=== PATIENT | female | born 1990 | race Caucasian/White ===

== ENCOUNTER 2020-09-21 08:47 | Outpatient (CLI) | payer BC, OTHER, SELFPAY | END 2020-09-21 08:48 | disposition home or self-care (01) | LOC: ANHAUDIO 08:49 | PROVIDERS: PCP Nurse Practitioner Adult Health; Visit Provider Nurse Practitioner Family | DX: R42 Dizziness and giddiness (principal) | CPT/HCPCS: 92540; 92546; 92557; 92567 ==

== ENCOUNTER 2022-09-21 11:23 | Outpatient (CLI) | payer OTHER, SELFPAY ==
--- NOTE | ~2022-09-21 | US_ITS ---
EXAMINATION: US renal BI DATE: 09/21/2022 11:51 INDICATION: Low back and left flank pain TECHNIQUE: Multiple grayscale and Doppler ultrasound images of the kidneys were obtained. COMPARISON: None. FINDINGS: The right kidney measures 10.2 x 3.9 x 5.8 cm. The left kidney measures 11.0 x 4.9 x 5.0 cm . The kidneys demonstrate normal parenchymal echogenicity. There is mild hydronephrosis of the right kidney. The bladder is normal. IMPRESSION: 1. Mild hydronephrosis of the right kidney. Reviewed, dictated and finalized at location L.
== END 2022-09-21 11:24 ==
LOC: MICIMG 11:26
PROVIDERS: PCP Family Medicine; Visit Provider Nurse Practitioner Obstetrics & Gynecology
DX: M54.50 Low back pain, unspecified (principal)
CPT/HCPCS: 76775

== ENCOUNTER 2022-10-16 08:31 | Outpatient (CLI) | payer OTHER, SELFPAY ==
--- NOTE | ~2022-10-16 | CT_ITS ---
EXAMINATION: CT abdomen pelvis wo/w con DATE: 10/16/2022 09:28 INDICATION: Right-sided hydronephrosis TECHNIQUE: Computed tomography (CT) of the abdomen and pelvis was performed without intravenous contr ast. CT of the abdomen and pelvis was then performed with a total of 130 mL Omnipaque-350 intravenous contrast using a double-bolus technique for simultaneous opacification of the renal parenchyma and r enal collecting system. The dose-length product was 1103.04 mGy-cm. 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 Heart size is normal. No pericar dial or pleural effusion. Liver, gallbladder, spleen, pancreas and bilateral adrenal glands are jazlyn l. Symmetric bilateral renal enhancement an no urolithiasis. No hydronephrosis on the postcontrast image s. There is likely transient mild dilation of the right renal collecting system on the post contrast imaging but with excreted contrast extending to the normal caliber right ureter to the bladder where right ureteral jet is visualized. Contrast is also seen extending the near complete length of the nor mal left ureter. No obstructing stones or masses identified. The bladder is distended to 12.0 x 11.0 x 8.5 cm. No urothelial irregularities identified. The uterus is normal. There are couple small bilateral adnexal cysts, the larger on the left measurin g 1.5 cm . Bowels including the retrocecal appendix are normal. Minimal amount of likely physiologic free fluid in the cul-de-sac. Tiny fat-containing umbilical hernia. No pathologically enlarged abdomi nal or pelvic lymphadenopathy. Bilateral L5 pars intra-articular is defects without spondylolisthesis . IMPRESSION: 1. Resolution of prior left hydroureteronephrosis with likely transient mild right hydronephrosis see n on the postcontrast but not immediately prior noncontrast imaging. This may be related to the degre e of distention of the bladder with normal caliber right ureter, ureteral jet visualized within the b ladder and no evident urolithiasis or other obstructing lesions. Reviewed, dictated and finalized at location B. IMPRESSION: 1. Resolution of prior left hydroureteronephrosis with likely transient mild ri ght hydronephrosis seen on the postcontrast but not immediately prior noncontra st imaging. This may be related to the degree of distention of the bladder with normal caliber right ureter, ureteral jet visualized within the bladder and no evident urolithiasis or other obstructing lesions.
[2022-10-16 08:53] LABS: Estimated Glomerular Filt Rate > 60
== END 2022-10-16 08:32 ==
LOC: MICIMG 08:32
PROVIDERS: PCP Family Medicine; Visit Provider Urology
DX: N13.30 Unspecified hydronephrosis (principal)
CPT/HCPCS: 74178; Q9967

== ENCOUNTER 2022-12-08 12:59 | Outpatient (CLI) | payer OTHER, MEDICAID, SELFPAY | END 2022-12-08 13:00 | disposition home or self-care (01) | LOC: ANHLAB 13:07 | PROVIDERS: PCP Family Medicine; Visit Provider Advanced Practice Midwife | DX: O20.0 Threatened abortion (principal); N91.2 Amenorrhea, unspecified; O36.0130 Maternal care for anti-D [Rh] antibodies, third trimester, not applicable or unspecified; Z3A.00 Weeks of gestation of pregnancy not specified | CPT/HCPCS: 36415; 84702; 85461; 86850; 86900; 86901 ==

== ENCOUNTER 2022-12-09 11:07 | Emergency (ER) | payer OTHER, MEDICAID, SELFPAY ==
--- NOTE | ~2022-12-09 | US_ITS ---
US OB <=14 wk fetus w TV DATE: 12/09/2022 13:11 INDICATION: Pelvic cramping. Rule out ectopic gestation. TECHNIQUE: Real-time imaging via transabdominal and transvaginal approaches COMPARISON: 10/16/2022 CT abdomen pelvis FINDINGS: The uterus measures approximately 8.4 centers height, 4.3 cm AP dimension. An intrauterine gestational sac is identified within the uterine fundus. Yolk sac is identified within the gestationa l sac. Gestational sac size of 1.51 cm is consistent with estimated gestational age of 6 weeks 2 days +/- 4 days with MOHINI of August 02, 2023. Mild irregularity of the gestational sac. No definite feta l pole is not identified. Continued short-term sonographic follow-up is recommended to assess v iability. Consider correlation with serial serum beta hCG levels as well. The ovaries are not demonstrated. IMPRESSION: Intrauterine gestational sac with yolk sac; sac size consistent with 6 weeks 2 days estim ated gestational age but no pole is definitively demonstrated. Recommendation: Short-term obstetrical ultrasound follow-up within 1 week and correlation with serial hCG levels Reviewed, dictated and finalized at Location A. Reviewed, dictated and finalized at location A. IMPRESSION: Intrauterine gestational sac with yolk sac; sac size consistent wit h 6 weeks 2 days estimated gestational age but no pole is definitively de monstrated. Recommendation: Short-term obstetrical ultrasound follow-up within 1 week and c orrelation with serial hCG levels
[2022-12-09 11:31] VITALS: BP 114/67; PULSE 78; RESP 16; TEMP 36.9; O2SAT 100
[2022-12-09 12:56] LABS: Appearance Urine Clear (Clear); Bacteria Urine None Seen /hpf; Bilirubin Urine Negative (Negative); Blood Urine Trace (Negative); Color Urine Yellow (Yellow); Glucose Urine UA Negative (Negative); Ketones Urine Negative (Negative); Leukocyte Esterase Ur 1+ LEU/UL (Negative); Need Manual Microscopic Reviewed; Nitrate Urine Negative (Negative); Non Pathogenic Casts 0-2; Protein Urine Negative (Negative); RBC Urine 0-2 /hpf (0-2); Specific Grav Ur 1.005 (1.001-1.035); Squamous Epithelial Cell Urine None seen /hpf (Few); Urobilinogen Urine 0.2 mg/dL (<2.0); WBC Urine 0-5 /hpf; pH Urine 7.5 (5.0-9.0)
[2022-12-09 12:58] LABS: Add Urine Microscopic? YES
[2022-12-09 13:01] LABS: Basophils Percent Auto 0.5 % (0.2-1.2); Eosinophils Absolute Auto 0.1 K/mm3 (0-0.3); Hematocrit 40.7 % (37.0-47.0); Hemoglobin 13.4 g/dL (12.0-15.0); Immature Granulocyte Absolute 0.01 K/mm3 (0.00-0.031); Immature Granulocyte Percent A 0.2 % (0-0.5); Lymphocytes Percent Auto 24.1 % (18.3-44.2); Mean Corpuscular HGB Conc 32.9 g/dl (32-36); Mean Corpuscular Hemoglobin 28.6 pg (26-34); Mean Corpuscular Volume 86.8 fl (80-100); Mean Platelet Volume 10.1 fl (7.4-10.4); Monocytes Absolute Auto 0.7 K/mm3 (0.1-0.6); Monocytes Percent Auto 10.2 % (2.6-8.5); Neutrophils Absolute Auto 4.2 K/mm3 (1.3-6.7); Platelet Count Result 213 k/mm3 (150-375); Red Blood Count 4.69 M/mm3 (4.2-5.4); Red Cell Distribution Width 12.7 % (11.5-14.5); White Blood Count 6.6 K/mm3 (4.5-10.0)
--- NOTE | 2022-12-09 13:04 | ED.GENADULT ---
HPI - General Adult General Chief complaint: Abdominal Pain Stated complaint: abdominal cramping, Time Seen by Provider: 12/09/22 12:02 History of Present Illness HPI narrative: This is a 32-year-old presenting ED after a positive test and vaginal spotting. Over the last 2-3 days the patient has been having the spotting and lower abdominal cramping. She had a positive test yesterday. She did see her OBGYN and had a beta quant drawn of 22,000. she tried to get in to see her OBGYN in instructed her to come to the emergency department. No other complaints. She has an ultrasound scheduled next week. Last menstrual period was September 29. Patient did not havea mentstrual period in october but took a test at that time that was negative. Related Data Allergies Allergy/AdvReac Type Severity Reaction Status Date / Time No Known Allergies Allergy Verified 12/09/22 11:08 Exam Narrative: APPEARANCE: No apparent distress. Head: atraumatic. EYES: EOMI, NOSE: Atraumatic NECK: Trachea midline RESPIRATORY: No increased rate of breathing clear to auscultation CARDIOVASCULAR: RRR, ABDOMINAL: Abdomen is soft nontender with no guarding rebound MUSCULOSKELETAl: No obvious deformities NEURO: Alert. Moving 4/4 extremities SKIN:: Warm, dry. Normal color PSYCHIATRIC: Normal affect Course Vital Signs Vital signs: Vital Signs Temperature 98.4 F 12/09/22 11:31 Pulse Rate 78 12/09/22 11:31 Respiratory Rate 16 12/09/22 11:31 Blood Pressure 114/67 12/09/22 11:31 Pulse Oximetry 100 12/09/22 11:31 Oxygen Delivery Room Air 12/09/22 11:31 Temperature 98.4 F 12/09/22 11:31 Pulse Rate 78 12/09/22 11:31 Respiratory Rate 16 12/09/22 11:31 Blood Pressure 114/67 12/09/22 11:31 Pulse Oximetry 100 12/09/22 11:31 Oxygen Delivery Room Air 12/09/22 11:31 Medical Decision Making MDM Narrative Medical decision making narrative: -Presentation: 32-year-old female presenting with abdominal pain cramping and spotting in . Rule out ectopic/miscarriage. 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 Transvaginal ultrasound showed a yolk sac without a definitive pole. Recommend close follow-up with ultrasound. Patient already has this scheduled. blood type is A positive. -Discussion of Management/Consultants: None -Dx tests considered but not ordered: -Procedures: none -Interventions: None -Shared decision making / Disposition: patient was informed of the results instructed follow-up with her OBGYN. Given return precautions for severe bleeding. -RX Vital Signs Vital Signs: Vital Signs Temperature 98.4 F 12/09/22 11:31 Pulse Rate 78 12/09/22 11:31 Respiratory Rate 16 12/09/22 11:31 Blood Pressure 114/67 12/09/22 11:31 Pulse Oximetry 100 12/09/22 11:31 Oxygen Delivery Room Air 12/09/22 11:31 Temperature 98.4 F 12/09/22 11:31 Pulse Rate 78 12/09/22 11:31 Respiratory Rate 16 12/09/22 11:31 Blood Pressure 114/67 12/09/22 11:31 Pulse Oximetry 100 12/09/22 11:31 Oxygen Delivery Room Air 12/09/22 11:31 Lab Data 12/09/22 12:47 12/09/22 12:47 Labs: Lab Results 12/09/22 12/09/22 Range/Units 12:22 12:47 WBC 6.6 (4.5-10.0) K/mm3 RBC 4.69 (4.2-5.4) M/mm3 Hgb 13.4 (12.0-15.0) g/dL Hct 40.7 (37.0-47.0) % MCV 86.8 (80-100) fl MCH 28.6 (26-34) pg MCHC 32.9 (32-36) g/dl RDW 12.7 (11.5-14.5) % Plt Count 213 (150-375) k/mm3 MPV 10.1 (7.4-10.4) fl Immature Gran % (Au
[2022-12-09 13:14] LABS: Anion Gap 7 mmol/L (8-16); Blood Urea Nitrogen 10 mg/dL (7-17); Calcium 9.2 mg/dL (8.4-10.2); Carbon Dioxide 26 mmol/L (22-30); Chloride 103 mmol/L (98-107); Estimated CRCL calculation 88 ml/min; Estimated Glomerular Filt Rate > 60; Glucose 85 mg/dL (65-110); Potassium 4.2 mmol/L (3.4-5.0); Sodium 136 mmol/L (137-145)
== END 2022-12-09 15:05 | disposition home or self-care (01) ==
PROVIDERS: Emergency Provider Emergency Medicine; PCP Family Medicine
DX: O20.0 Threatened abortion (principal); Z3A.01 Less than 8 weeks gestation of pregnancy
CPT/HCPCS: 36415; 76801; 76817; 80048; 81001; 81025; 85025; 99284

== ENCOUNTER 2023-05-08 09:00 | Outpatient (RCR) | payer OTHER, SELFPAY ==
--- NOTE | 2023-04-16 15:41 | OPREHPOC ---
Outpatient Therapy Plan of Care This is a Multidisciplinary Plan of Care that may contain components documented by all disciplines (PT, OT, and ST.) PT Problem 1 PT Problem #1 Knowledge Deficit PT Goal 1 Goal Pt to be IND with issued HEP Target Visit 8 PT Problem 2 PT Problem #2 Pain PT Goal 1 Goal Pt to report leg pain no greater than 3/10 in the last week. Target Visit 8 PT Goal 2 Goal pt to report 75% improvement in overall symptoms. Target Visit 8 PT Problem 3 PT Problem #3 Impaired Strength PT Goal 1 Goal Pt to improve hip strength to 4+/5 globally. Target Visit 8 PT Goal 2 Goal Pt to demonstrate a 10lb functional lift and carry without limitations. Target Visit 8 PT Problem 4 PT Problem #4 Impaired Sensation PT Goal 1 Goal Pt to report no radicular symptoms in the last week. Target Visit 8 PT Goal 2 Goal Pt to report no increase in pain with 4 hours of standing. Target Visit 8
--- NOTE | 2023-04-16 15:41 | PTOPEVAL1 ---
Assessment and note entered by Jhonny Covington, PT, DPT Evaluation Information Assessment Status Evaluation Diagnosis L leg tingling, core and hip weakness, decreased body mechanics Subjective Information When asked about her pain, pt states she is not a fan of physical therapy but her chiropractor helps a lot. She states she thinks this is sciatic pain. She states her pain increases when she is on her feet for long periods of time. She is currently wearing a knee brace cause it feels like her knee is going to give out on her. Pt is 24wks as of yesterday. 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 Today she demonstrates a positive neutral tension test, decreased hip and core strength, and decreased body mechanics. She demonstrates decreased stability globally. Skilled therapy services are indicated to improve strength, manage pain, improve body mechanics, and to minimize functional limitations. Plan of Care Interventions Gait Training,Hot Pack/Cold Pack,Manual Therapy, Neuro Re-education,Patient/Caregiver Educati, Therapeutic Activities,Therapeutic Exercise PT Services Indicated Yes Treatment Frequency and 1-2x/wk for 8 visits Duration These treatments will address the objective and functional deficits as defined above. The patient will be advanced safely and appropriately in order for the patient to progress towards his/her prior level of function. Additional exercises will be introduced and as well as a comprehensive home exercise program upon discharge, if needed, ?to ensure carryover of functional gains achieved in the clinic. This treatment plan has been reviewed and agreement upon by the patient.
--- NOTE | 2023-04-24 15:38 | PCPTNOTE ---
Patient canceled due to work.
--- NOTE | 2023-04-26 09:20 | PCPTNOTE ---
Patient no showed to appointment this date. Called and patient stated she didn't know she had an appointment.
--- NOTE | 2023-04-30 09:20 | PCPTNOTE ---
Patient did not show up for scheduled appointment this date. Called and reminded of next appointment.
--- NOTE | 2023-05-07 09:06 | PCPTNOTE ---
Patient called & cancelled at her appointment time this date due to not being able to make it. She has been rescheduled.
--- NOTE | 2023-05-14 09:17 | PCPTNOTE ---
Patient called & cancelled scheduled appointment this date due to being ill. She has been rescheduled.
--- NOTE | 2023-05-24 09:29 | PTOPDC ---
Assessment and note entered by Jhonny Covington, PT, DPT Evaluation Information Assessment Status Discharge - Pt Not Present Diagnosis pain (R52) LLE radic., core and hip weakness, decreased body mechanics Subjective Information Pt called and cancelled appointment at the time of the appointment. She will be discharged at this time per the attendance policy. Within her POC she has cancelled 4 and no showed 2 appointments. Assessment PT Clinical Summary Reuben completed 4 visits of therapy from 04/16/23 to 05/24/23. She will be discharged at this time.
== END 2023-05-24 10:22 | disposition home or self-care (01) ==
LOC: ANHGOSHPT 09:00
PROVIDERS: PCP Family Medicine; Visit Provider Advanced Practice Midwife
DX: R52 Pain, unspecified (principal)
CPT/HCPCS: 97110; 97161; 97530; 99199

== ENCOUNTER 2023-05-22 09:47 | Outpatient (RCR) | payer OTHER, SELFPAY ==
[2023-05-22 10:45] VITALS: BP 105/68; PULSE 124
== END 2023-08-20 23:59 | disposition home or self-care (01) ==
LOC: ANHOBOP 09:47
PROVIDERS: PCP Family Medicine; Visit Provider Advanced Practice Midwife
DX: O36.8130 Decreased fetal movements, third trimester, not applicable or unspecified (principal); Z3A.29 29 weeks gestation of pregnancy
CPT/HCPCS: 59025

== ENCOUNTER 2023-07-24 06:11 | Inpatient (IN) | payer OTHER, SELFPAY ==
[2023-07-24] VITALS (70 sets, daily range): BP systolic 91–158; BP diastolic 55–93; PULSE 62–145; RESP 16–18; TEMP 36.7–37.1; O2SAT 82–100; BMI 35.4
[2023-07-24] MEDS: fentaNYL CITRATE INJ (*CRX) 100 MCG/2 ML VIAL 50 MCG IV PUSH (06:47)
[2023-07-24 06:49] LABS: Basophils Percent Auto 0.2 % (0.2-1.2); Eosinophils Absolute Auto 0.2 K/mm3 (0-0.3); Eosinophils Percent Auto 2.3 % (0-4.4); Hematocrit 36.6 % (37.0-47.0); Hemoglobin 11.9 g/dL (12.0-15.0); Immature Granulocyte Absolute 0.01 K/mm3 (0.00-0.031); Immature Granulocyte Percent A 0.1 % (0-0.5); Lymphocytes Absolute Auto 1.98 K/mm3 (0.9-3.2); Mean Corpuscular HGB Conc 32.5 g/dl (32-36); Mean Corpuscular Volume 86.1 fl (80-100); Mean Platelet Volume 11.1 fl (7.4-10.4); Monocytes Absolute Auto 0.6 K/mm3 (0.1-0.6); Monocytes Percent Auto 7.6 % (2.6-8.5); Neutrophils Absolute Auto 5.4 K/mm3 (1.3-6.7); Neutrophils Percent Auto 65.8 % (45.5-73.1); Platelet Count Result 151 k/mm3 (150-375); Red Blood Count 4.25 M/mm3 (4.2-5.4); Red Cell Distribution Width 14.3 % (11.5-14.5); White Blood Count 8.3 K/mm3 (4.5-10.0)
--- NOTE | 2023-07-24 06:52 | LDADM ---
This patient, Reuben Cope, was admitted to Labor/Delivery/Recovery 104 on 07/24/23 at 06:11. Plans for labor, pain management and were discussed with patient. Patient/family oriented to hospital policies and general routines including ID bracelet, bed and alarms, visiting hours, pain management, procedures, bathroom and other care routines, personal items, smoking policy, room service/diet and guest tray routines, infant security routines, and visiting hours. Patient/Family are encouraged to report perceived risks to care and to ask questions if they do not understand what they are told or what they should do. See OBIX for further documentation.
[2023-07-24 06:59] LABS: Alanine Aminotransferase 25 U/L (6-35); Albumin Level 3.7 g/dL (3.5-5.1); Alkaline Phosphatase 169 U/L (38-126); Anion Gap 5 mmol/L (8-16); Aspartate Amino Transferase 29 U/L (14-36); Bilirubin,Total 0.5 mg/dL (0.2-1.3); Blood Urea Nitrogen 9 mg/dL (7-17); Calcium 9.8 mg/dL (8.4-10.2); Carbon Dioxide 23 mmol/L (22-30); Chloride 107 mmol/L (98-107); Estimated CRCL calculation 99 ml/min; Estimated Glomerular Filt Rate > 60; Glucose 89 mg/dL (65-110); Potassium 4.1 mmol/L (3.4-5.0); Sodium 135 mmol/L (137-145)
[2023-07-24] MEDS: LACTATED RINGERS 1,000 ML 125 ML IV CONT ×2 (07:03→07:51)
[2023-07-24 07:05] LABS: Uric Acid 4.2 mg/dL (2.5-7.5)
[2023-07-24] MEDS: ONDANSETRON INJ 4 MG/2 ML VIAL IV PUSH (07:05)
--- NOTE | 2023-07-24 09:28 | WPDANESEPP ---
Anes - Eval Pre Procedure Procedure: labor pain management Date/Time: 07/24/23 09:28 Surgeon: Ebonie Preop Diagnosis: pain during labor Pre Op Diagnosis: Labor Patient Data Age: 33 Gender: F Height: 1.55 m Weight: 85 kg Last Vital Signs Temp 98.1 F 07/24/23 08:55 Pulse 99 07/24/23 09:16 Resp 18 07/24/23 08:55 BP 107/77 07/24/23 09:16 Pulse Ox 100 07/24/23 09:23 O2 Del Method Room Air 07/24/23 06:50 Allergies Allergy/AdvReac Type Severity Reaction Status Date / Time latex Allergy Itching Verified 07/06/23 14:53 Home Medications Medication Instructions Recorded Confirmed Type Classic 1 tab-cap PO DAILY 07/06/23 07/06/23 History Laboratory Tests 07/24/23 06:36 WBC 8.3 K/mm3 (4.5-10.0) RBC 4.25 M/mm3 (4.2-5.4) Hgb 11.9 L g/dL (12.0-15.0) Hct 36.6 L % (37.0-47.0) MCV 86.1 fl (80-100) MCH 28.0 pg (26-34) MCHC 32.5 g/dl (32-36) RDW 14.3 % (11.5-14.5) Plt Count 151 k/mm3 (150-375) MPV 11.1 H fl (7.4-10.4) Immature Gran % (Auto) 0.1 % (0-0.5) Neut % (Auto) 65.8 % (45.5-73.1) Lymph % (Auto) 24.0 % (18.3-44.2) [place] % (Auto) 7.6 % (2.6-8.5) Eos % (Auto) 2.3 % (0-4.4) Baso % (Auto) 0.2 % (0.2-1.2) Lymph # (Auto) 1.98 K/mm3 (0.9-3.2) [place] # (Auto) 0.6 K/mm3 (0.1-0.6) Eos # (Auto) 0.2 K/mm3 (0-0.3) Baso # (Auto) 0.0 K/mm3 (0.0-0.1) Abs Immat Gran (auto) 0.01 K/mm3 (0.00-0.031) Absolute Neuts (auto) 5.4 K/mm3 (1.3-6.7) Absolute Nucleated RBC 0.0 K/mm3 (0.0-0.012) Nucleated RBC % 0.0 % (0.0-0.2) Sodium 135 L mmol/L (137-145) Potassium 4.1 mmol/L (3.4-5.0) Chloride 107 mmol/L (98-107) Carbon Dioxide 23 mmol/L (22-30) Anion Gap 5 L mmol/L (8-16) BUN 9 mg/dL (7-17) Creatinine 0.70 mg/dL (0.7-1.0) Estim Creat Clear Calc 99 ml/min Estimated GFR > 60 (59 - ) Glucose 89 mg/dL (65-110) Uric Acid 4.2 mg/dL (2.5-7.5) Calcium 9.8 mg/dL (8.4-10.2) Total Bilirubin 0.5 mg/dL (0.2-1.3) AST 29 U/L (14-36) ALT 25 U/L (6-35) Alkaline Phosphatase 169 H U/L (38-126) Total Protein 7.0 g/dL (6.3-8.2) Albumin 3.7 g/dL (3.5-5.1) RPR Pending Blood Type A Positive Antibody Screen Negative Patient hx anesthesia problems: none Family hx anesthesia problems: none Results Review: All pre-operative results and documents have been reviewed as part of the pre-operative evaluation. PENDING SALE TO [facility] Family History Family History Father Congestive heart failure Social History Social History Smoking status: Never smoker Substance use: never Do You Feel Safe in your Home?: Yes Lack of Transportation: No Lack of Food: Never True Current Housing: I Have Housing Concerned About Future Housing: No Difficulty Paying Gas/Electric Bills: No Difficulty Paying for Meds: No Currently Unemployed: No Education: Associate Degree Difficulty w/ Childcare or Family Care: No Spiritual care concerns: No Exam Day of Procedure 07/24/23 09:28
--- NOTE | 2023-07-24 09:51 | WPDOBADMIT ---
Obstetrics - Admit Note Admission Note: record reviewed. No pertinent additions to the history and/or any subsequent changes in the physical findings that are not consistent with the expected course of the were found. Additions to the history and/or subsequent changes in the physical findings follow. admitted after SROM, anticipate vaginal delivery
[2023-07-24] MEDS: OXYTOCIN 30 UNITS/NS 500 ML 30 UNITS/500 ML BAG IV CONT (10:30)
--- NOTE | 2023-07-24 11:14 | PM.OBPRVD ---
OB - Vaginal Delivery Note Procedure Delivery date: 07/24/23 Delivery augmentation: Pitocin Delivery monitor: External FHT and External Uterine Route of delivery: Episiotomy description: None Laceration Description: Perineal - 1st Degree and Labial (left) Delivery repair: vicryl Specimen: No Quantitative Blood Loss (ml): 325 Anesthesia type: Epidural Disposition: Floor Complications: No immediate complications Baby Date of : 07/24/23 Time of : 10:55 Weeks of gestation at delivery: 38 Infant gender: Female Weight (pounds): 7 Weight (ounces): 11 presentation: vertex position: Left Occiput Anterior Placenta delivery description: Spontaneous Cord Vessel Description: 3 Vessels and Delayed Cord Clamping score one minute: 8 score five minutes: 9 Narrative: mother and baby in stable condition
[2023-07-24] MEDS: IBUPROFEN 600 MG TABLET PO ×2 (11:23→13:29)
[2023-07-24] MEDS: OXYTOCIN 30 UNITS/NS 500 ML 30 UNITS/500 ML BAG 125 UNITS IV CONT (11:35)
--- NOTE | 2023-07-24 13:34 | OBPPTRN ---
Patient transferred to post room #285 via wheelchair. Support person present. Oriented to unit, room, information board, rooming in, admission packet and security measures. Patient verbalizes understanding.
[2023-07-24] MEDS: DOCUSATE SODIUM 100 MG CAPSULE PO (16:09)
[2023-07-24 17:04] LABS: Rapid Plasma Reagin Non-Reactive (NonReactive)
[2023-07-24] MEDS: SIMETHICONE 80 MG TAB.CHEW PO (20:20)
[2023-07-24] MEDS: ACETAMINOPHEN 325 MG TABLET 650 MG PO (22:35)
[2023-07-25] MEDS: IBUPROFEN 600 MG TABLET PO ×2 (02:32→13:43)
[2023-07-25 03:30] VITALS: BP 117/72; PULSE 91; RESP 16; TEMP 36.8; O2SAT 99
[2023-07-25 04:55] LABS: Hematocrit 31.5 % (37.0-47.0); Hemoglobin 9.9 g/dL (12.0-15.0)
[2023-07-25] MEDS: ACETAMINOPHEN 325 MG TABLET 650 MG PO ×2 (07:19→21:37)
[2023-07-25] MEDS: DOCUSATE SODIUM 100 MG CAPSULE PO ×2 (07:20→16:00)
[2023-07-25] MEDS: POLYSACCHARIDE IRON COMPLEX 150 MG CAPSULE PO ×2 (07:20→16:00)
[2023-07-25] MEDS: WITCH HAZEL 40 PADS 1 PAD TOPICAL (07:20)
[2023-07-25] MEDS: MULTIVIT/MIN/PREN/FOL AC/IRON TABLET 1 TAB PO (07:20)
--- NOTE | 2023-07-25 07:48 | PM.OBPNVD ---
OB - PN: Subj Subjective Date/time seen: 07/25/23 07:48 Interval history: pp day 1 doing well no complaints OB - PN: Obj Data Labs 07/25/23 03:25 07/24/23 06:36 Labs: Laboratory Results - last 24 hr 07/24/23 07/25/23 06:36 03:25 Hgb 9.9 L Hct 31.5 L RPR Non-reactive OB - PN A/P Plan day: 1 Plan: routine care and discharge home Time Spent With Patient Time: Total time spent is greater than 50% in coordination of care (as documented) at patient's floor/unit and/or counseling patient: Review of Systems Review of Systems: All systems reviewed & are unremarkable except as noted in HPI and below Exam Const: General: cooperative and healthy appearing Resp: Effort & Inspection: normal respiratory effort Cardio: Rate: regular rate Skin: General skin exam: normal color
[2023-07-25 07:55] VITALS: BP 105/74; PULSE 75; TEMP 36.6; O2SAT 100
[2023-07-25] MEDS: CALCIUM CARBONATE (TUMS) 500 MG (200 MG ELEMENTAL) (08:43)
--- NOTE | 2023-07-25 09:49 | PC.NURSE ---
On 07/25/23, the student, Familia Mcarthur, provided care and completed [facility] documentation on this patient. I have reviewed the student's documentation and agree with the findings.
--- NOTE | 2023-07-25 17:25 | PC.NURSE ---
[id number] Introductions were made, then consulted with patient to assess needs related to . Mother has company and gave verbal consent to have a discussion while guest are present. Discussed with mother her?plans to feed?her , the?experience so far and shared that there were poor latches last night and her right nipple is sore today. Mother states that the last feeding was 30 minutes on the left breast and there was no pain. Resources provided for inpatient with name written on the communication board. Mother voiced understanding of information, will call if there is a request for assistance, and we will revisit tomorrow to assess if there are needs. taken to the nursery for a Pediatric assessment. Reported to the Primary RN.
[2023-07-25 20:00] VITALS: BP 111/73; PULSE 71; RESP 18; TEMP 36.8; O2SAT 100
[2023-07-26] MEDS: IBUPROFEN 600 MG TABLET PO ×2 (02:19→12:20)
[2023-07-26] MEDS: CALCIUM CARBONATE (TUMS) 500 MG (200 MG ELEMENTAL) (03:00)
[2023-07-26 07:58] VITALS: TEMP 36.7
[2023-07-26] MEDS: ACETAMINOPHEN 325 MG TABLET 650 MG PO (07:58)
--- NOTE | 2023-07-26 07:58 | PM.OBPNVD ---
OB - PN: Subj Subjective Date/time seen: 07/26/23 07:58 Interval history: pp day 1 doing well no complaints Patient comments: no complaints, pain well controlled and tolerating diet OB - PN: Obj Data Labs 07/25/23 03:25 07/24/23 06:36 OB - PN A/P Plan day: 2 Plan: routine care and discharge home Time Spent With Patient Time: Total time spent is greater than 50% in coordination of care (as documented) at patient's floor/unit and/or counseling patient: Exam Const: General: comfortable and no acute distress Resp: Effort & Inspection: normal respiratory effort Auscultation: no rales, no rhonchi and no wheezes Cardio: Rate: regular rate Heart sounds: no click, no murmurs and no rubs GI: GI Palp: Yes Soft to palpation and No Tenderness to palpation present (GI) Auscultation: normal bowel sounds Extrem: General: normal to inspection, no pedal edema and no calf tenderness
--- NOTE | 2023-07-26 07:58 | PM.OBDSVD ---
DS: Admitting Diagnosis Discharge Date 07/26/23 Admitting Diagnosis term OB - DS: Summary OB Procedures : None OB Procedures Intrapartum: Spontaneous Vag Delivery OB Procedures: : None Peripartum Data Laceration Description: Perineal - 1st Degree and Labial (left) Episiotomy description: None Time Spent with Patient Time attestation: Total time spent providing and/or coordinating discharge services: Discharge Plan Discharge Discharging Clinician: Ana Loomis Patient Disposition: Home, Self-Care Activity: pelvic rest Diet: regular Patient Instructions: Antibiotic Form Stand Alone Forms: General Discharge Information Follow-up/Referrals: Ana Loomis MD [Physician] - Discharge Medications: Continued Classic 1 tab-cap PO DAILY Date of admission: 07/24/23 06:11 Primary Care Provider: Moo,Edgar Payne Admitting Provider: Ana Loomis Attending physician on admission: Ana Loomis Condition: Stable
[2023-07-26] MEDS: MULTIVIT/MIN/PREN/FOL AC/IRON TABLET 1 TAB PO (07:59)
[2023-07-26] MEDS: DOCUSATE SODIUM 100 MG CAPSULE PO (07:59)
[2023-07-26] MEDS: POLYSACCHARIDE IRON COMPLEX 150 MG CAPSULE PO (07:59)
[2023-07-26 08:00] VITALS: BP 111/76; PULSE 62; RESP 18; TEMP 36.7; O2SAT 100
--- NOTE | 2023-07-26 15:27 | PC.NURSE ---
[id number] Mother led the conversation with her experience so far, plan to feed her , and her ability to independently latch optimally without discomfort and demonstrates effective on the right breast at this time. Reminded mother to use good handwashing technique to prevent infection. Mother is feeding appropriately for growth of and understands stimulating infant to eat if needed. Infant has had appropriate feedings in the last 24 hours meets the outcomes for weight, output, blood sugar and jaundice at this time. Mother states she is confident to continue effectively her at home, when to call for assistance, denies any additional assistance or education at this time. Reinforced understanding of milk production, transition of milk, signs of adequate intake, transition of stool, prevention/relief of engorgement, plugged ducts, mastitis, responsive watching for feeding cues, the different methods of stimulating to breastfeed 1-3 hours after the start of the last feeding, community resources, and when to call a provider using the resource of the mom and baby guide. Mother voiced understanding of the education shared.
[2023-07-27 10:38] VITALS: BP 123/81; PULSE 74; RESP 18; TEMP 37.1; O2SAT 100
== END 2023-07-26 15:13 | disposition home or self-care (01) | DRG 560 ==
LOC: ANHLDR 06:31 → ANHOB2 13:35
PROVIDERS: Admitting Provider Obstetrics & Gynecology; PCP Family Medicine; Referring Provider Advanced Practice Midwife; Visit Provider Obstetrics & Gynecology
DX: O70.0 First degree perineal laceration during delivery (principal); Z37.0 Single live birth; Z3A.38 38 weeks gestation of pregnancy
CPT/HCPCS: 36415; 80053; 84550; 85014; 85018; 85025; 86592; 86850; 86900; 86901; A9270; J2405; J2590; J2795; J3010; J7120

== ENCOUNTER 2024-02-28 13:56 | Emergency (ER) | payer OTHER, SELFPAY ==
--- NOTE | ~2024-02-28 | US_ITS ---
US OB transvaginal Ordering provider: Rod Patel History: . vaginal bleeding . Comparison: None. Technique: Transabdominal and endovaginal ultrasound of the pelvis (Doppler ultrasound interrogation techniques used as needed for this exam.) FINDINGS: CERVIX: Normal. UTERUS: Measures 8.7x 3.8x 6.1 cm.. No myometrial masses. Gestational sac is seen measuring 0.7 cm which is equivalent to 5 weeks and 3 days. Yolk sac and pole are not demonstrated. Tiny area seen in the gestational sac may represent yol k sac. Posterior CUL DE SAC: Trace of free fluid. RIGHT OVARY: Normal in size measuring 2.5x 1.8 x 1.2 cm. Normal echotexture. Doppler vascular flow pr esent. LEFT OVARY: Normal in size measuring 3.4x 1.8x 2.2 cm. Normal echotexture. Doppler vascular flow pres ent. ADNEXA: Left adnexal cyst is seen which measures 1.5 x 1.3 x 1.5 cm. IMPRESSION: 0.7 cm Intrauterine gestational sac with no yolk sac or pole which may represent early pregnan cy. Clinical and 2 5 weeks and 3 days. Follow-up advised. Reviewed, dictated and finalized at location A. IMPRESSION: 0.7 cm Intrauterine gestational sac with no yolk sac or pole which may re present early . Clinical and 2 5 weeks and 3 days. Follow-up advised.
[2024-02-28 14:23] VITALS: BP 114/77; PULSE 81; RESP 18; TEMP 36.6; O2SAT 98
--- NOTE | 2024-02-28 15:51 | ED.PREGNANCY ---
HPI - General Chief complaint: Vaginal Bleeding <Sanaz Murry PA-C - Last Filed: 03/02/24 14:14> Stated complaint: vag bleeding pos preg test, unsure how many weeks <Sanaz Murry PA-C - Last Filed: 03/02/24 14:14> Time Seen by Provider: 02/28/24 15:51 <Sanaz Murry PA-C - Last Filed: 03/02/24 14:14> Focused HPI: This is a 33 year old female that presents to the ER for positive home test. Reports she is currently having bleeding and cramping. She took plan B 3 weeks ago. Denies fever, vomiting. GENERAL: Well-appearing, well-nourished, and in no acute distress. HEAD: Normocephalic, atraumatic. CHEST: Clear to auscultation. ?No respiratory distress. HEART: Regular rate and rhythm.? NEURO: ?Alert and oriented x3. Patient screened in triage and initial orders placed.? ?Additional care and disposition to be based upon?diagnostic testing and treatment. <Sanaz Murry PA-C - Last Filed: 03/02/24 14:14> History of Present Illness HPI Narrative: patient is a 33-year-old female who presents emergency department chief complaint of vaginal bleeding and cramping. The patient reports having some mild spotting reports that she is unsure of her last menstrual. Patient involved breast feeding and is approximately 7 months patient reports that she took a dose Plan B approximately 3 weeks ago patient reports that she is having some cramping reports cramping has improved at this time. <Rod Patel MD - Last Filed: 02/28/24 21:50> Related Data Home medications: Home Medications Medication Instructions Recorded Confirmed Classic 1 tab-cap PO DAILY 07/06/23 07/06/23 <Sanaz Murry PA-C - Last Filed: 03/02/24 14:14> Allergies/Adverse reactions: Allergies Allergy/AdvReac Type Severity Reaction Status Date / Time latex Allergy Itching Verified 02/28/24 13:57 <Snaaz Murry PA-C - Last Filed: 03/02/24 14:14> Review of Systems Review of Systems: A 10 system review of systems was completed on the patient and is negative except for what is stated in the HPI. Nursing and ancillary documentation was reviewed. <Rod Patel MD - Last Filed: 02/28/24 21:50> PMFSH Family History Family History: Family History Father Congestive heart failure <Sanaz Murry PA-C - Last Filed: 03/02/24 14:14> Social History Social History: Social History Smoking status: Never smoker Substance use: never Do You Feel Safe in your Home?: Yes Lack of Transportation: No Lack of Food: Never True Current Housing: I Have Housing Concerned About Future Housing: No Difficulty Paying Gas/Electric Bills: No Difficulty Paying for Meds: No Currently Unemployed: No Education: Associate Degree Difficulty w/ Childcare or Family Care: No Spiritual care concerns: No <Sanaz Murry PA-C - Last Filed: 03/02/24 14:14> Exam Narrative: GENERAL: Well-appearing, well-nourished, and in no acute distress. HEAD: Normocephalic, atraumatic. EYES: PERRLA and EOMI. ENT: Nares clear, no rhinorrhea or epistaxis. Mucous membranes moist. NECK: Supple. CHEST: Clear to auscultation. No respiratory distress. HEART: Regular rate and rhythm. No murmur heard. Normal peripheral pulses. ABDOMEN: Soft, nontender, nondistended, normal active bowel sounds. EXTREMITIES: Normal range of motion. No edema. SKIN: Warm, dry, no rash. NEURO: No focal deficits. Alert and oriented x3. PSYCH: Normal mood and affect. <Rod Patel MD - Last Filed: 02/28/24 21:50> Course Vital Signs Vital signs: Vital Signs Temperature 97.9 F 02/28/24 14:23 Pulse Rate 81 02/28/24 14:23 Respiratory Rate 18 02/28/24 14:23 Blood Pressure 114/77 02/28/24 14:23 Pulse Oximetry 98
[2024-02-28 16:16] LABS: BEDSIDEPREGUCG Positive (Negative)
[2024-02-28 18:04] VITALS: BP 107/66; PULSE 75; O2SAT 100
[2024-02-28 18:13] LABS: Basophils Percent Auto 0.4 % (0.2-1.2); Eosinophils Absolute Auto 0.2 K/mm3 (0-0.3); Eosinophils Percent Auto 2.2 % (0-4.4); Hematocrit 39.7 % (37.0-47.0); Hemoglobin 13.1 g/dL (12.0-15.0); Immature Granulocyte Absolute 0.01 K/mm3 (0.00-0.031); Immature Granulocyte Percent A 0.1 % (0-0.5); Lymphocytes Absolute Auto 2.12 K/mm3 (0.9-3.2); Lymphocytes Percent Auto 29.2 % (18.3-44.2); Mean Corpuscular Hemoglobin 28.2 pg (26-34); Mean Corpuscular Volume 85.4 fl (80-100); Mean Platelet Volume 10.4 fl (7.4-10.4); Monocytes Absolute Auto 0.6 K/mm3 (0.1-0.6); Neutrophils Absolute Auto 4.4 K/mm3 (1.3-6.7); Neutrophils Percent Auto 60.1 % (45.5-73.1); Platelet Count Result 216 k/mm3 (150-375); Red Blood Count 4.65 M/mm3 (4.2-5.4); Red Cell Distribution Width 13.5 % (11.5-14.5); White Blood Count 7.3 K/mm3 (4.5-10.0)
[2024-02-28 18:27] LABS: Alanine Aminotransferase 14 U/L (6-35); Albumin Level 4.4 g/dL (3.5-5.1); Alkaline Phosphatase 58 U/L (38-126); Anion Gap 11 mmol/L (4-12); Aspartate Amino Transferase 21 U/L (14-36); Bilirubin,Total 0.4 mg/dL (0.2-1.3); Blood Urea Nitrogen 10 mg/dL (7-17); Carbon Dioxide 24 mmol/L (22-30); Chloride 102 mmol/L (98-107); Estimated CRCL calculation 103 ml/min; Estimated Glomerular Filt Rate > 60; Glucose 119 mg/dL (65-110); Partial Thromboplastin Time 27.3 Seconds (22.3-36.8); Potassium 3.8 mmol/L (3.4-5.0); Prothrombin Time 13.2 Seconds (11.1-14.7); Sodium 137 mmol/L (137-145)
[2024-02-28 22:05] VITALS: BP 116/71; PULSE 82; RESP 16; O2SAT 96
== END 2024-02-28 22:07 | disposition home or self-care (01) ==
PROVIDERS: Physician Assistant; Emergency Provider Emergency Medicine; PCP Advanced Practice Midwife
DX: O20.0 Threatened abortion (principal); Z3A.01 Less than 8 weeks gestation of pregnancy
CPT/HCPCS: 36415; 76817; 80053; 81025; 84702; 85025; 85461; 85610; 85730; 86850; 86900; 86901; 99284

== ENCOUNTER 2024-03-05 16:51 | Emergency (ER) | payer OTHER, SELFPAY ==
--- NOTE | ~2024-03-05 | US_ITS ---
FIRST TRIMESTER ULTRASOUND 03/05/2024 18:00 CDT Ordering provider: Yandy Howell PA-C History: . vag bleeding, pain/cramp, 6 weeks . Comparison: None. FINDINGS: Uterus: Measures 9.5 x 5 x 5.5 cm. INTRAUTERINE GESTATIONAL SAC: Present. Measures 1.5 cm which is equivalent to 5 weeks and 6 days. YOLK SAC: Present. Measures 0.3 cm. POLE: Absent. Right ovary: measures 2.6 x 1.5 x 1.6 cm. Blood flow is not well demonstrated. Cystic structure is seen adjacent to the ovary which measures 1.1 x 1 x 1.1 cm. Left ovary: Measures 3 x 1.5 x 1.8 cm. FREE FLUID: Trace is seen in the cul-de-sac. IMPRESSION: Intrauterine uterine Gestational sac with yolk sac. No pole seen. Gestational age is 5 weeks an d 6 days. Follow-up advised. Right adnexal cystic area which may be ovarian. Gestational sac is less likely although cannot be exc luded. Follow-up and clinical correlation advised. Reviewed, dictated and finalized at location A. IMPRESSION: Intrauterine uterine Gestational sac with yolk sac. No pole seen. Gestati onal age is 5 weeks and 6 days. Follow-up advised. Right adnexal cystic area which may be ovarian. Gestational sac is less likely although cannot be excluded. Follow-up and clinical correlation advised.
[2024-03-05 16:54] VITALS: BP 104/81; PULSE 72; RESP 16; TEMP 36.9; O2SAT 100
[2024-03-05 17:20] LABS: Basophils Percent Auto 0.5 % (0.2-1.2); Eosinophils Absolute Auto 0.2 K/mm3 (0-0.3); Eosinophils Percent Auto 2.1 % (0-4.4); Hematocrit 41.9 % (37.0-47.0); Hemoglobin 13.7 g/dL (12.0-15.0); Immature Granulocyte Absolute 0.02 K/mm3 (0.00-0.031); Immature Granulocyte Percent A 0.3 % (0-0.5); Lymphocytes Absolute Auto 2.03 K/mm3 (0.9-3.2); Lymphocytes Percent Auto 26.2 % (18.3-44.2); Mean Corpuscular HGB Conc 32.7 g/dl (32-36); Mean Corpuscular Hemoglobin 27.8 pg (26-34); Mean Corpuscular Volume 85.2 fl (80-100); Mean Platelet Volume 10.6 fl (7.4-10.4); Monocytes Absolute Auto 0.6 K/mm3 (0.1-0.6); Monocytes Percent Auto 8.3 % (2.6-8.5); Neutrophils Absolute Auto 4.9 K/mm3 (1.3-6.7); Neutrophils Percent Auto 62.6 % (45.5-73.1); Platelet Count Result 218 k/mm3 (150-375); Red Blood Count 4.92 M/mm3 (4.2-5.4); Red Cell Distribution Width 13.4 % (11.5-14.5); White Blood Count 7.8 K/mm3 (4.5-10.0)
[2024-03-05 17:24] LABS: Add Urine Microscopic? YES; Appearance Urine Clear (Clear); Bacteria Urine None Seen /hpf; Bilirubin Urine Negative (Negative); Blood Urine 2+ (Negative); Color Urine Yellow (Yellow); Glucose Urine UA Negative (Negative); Ketones Urine 1+ mg/dL (Negative); Leukocyte Esterase Ur Negative LEU/UL (Negative); Nitrate Urine Negative (Negative); Non Pathogenic Casts 0-2; Protein Urine Negative (Negative); Specific Grav Ur 1.015 (1.001-1.035); Squamous Epithelial Cell Urine None Seen /hpf (Few); Urobilinogen Urine 0.2 mg/dL (<2.0); WBC Urine 0-5 /hpf (0-3)
[2024-03-05 17:30] LABS: Anion Gap 9 mmol/L (4-12); Blood Urea Nitrogen 12 mg/dL (7-17); Calcium 9.6 mg/dL (8.4-10.2); Carbon Dioxide 26 mmol/L (22-30); Chloride 101 mmol/L (98-107); Estimated CRCL calculation 91 ml/min; Estimated Glomerular Filt Rate > 60; Glucose 93 mg/dL (65-110); Potassium 3.8 mmol/L (3.4-5.0); Sodium 136 mmol/L (137-145)
[2024-03-05] MEDS: ONDANSETRON INJ 4 MG/2 ML VIAL IV PUSH (17:50)
[2024-03-05] MEDS: ACETAMINOPHEN 500 MG TABLET 1000 MG PO (17:51)
[2024-03-05] MEDS: SODIUM CHLORIDE 0.9% IV 1,000 ML 999 ML IV CONT (17:51)
--- NOTE | 2024-03-05 18:22 | ED.PREGNANCY ---
HPI - General Chief complaint: Vaginal Bleeding Stated complaint: think im having a miscarriage Time Seen by Provider: 03/05/24 17:00 Source: patient and old records reviewed Mode of arrival: ambulatory Limitations: no limitations History of Present Illness HPI Narrative: Patient is a 33-year-old female who presents the ED with report of vaginal bleeding. Patient is and around 7 months post from previous . Currently approximately 6 weeks gestation. Patient reports when she first had a positive test at home, she attempted to take OTC Plan B. She began bleeding a few weeks later and was seen in the ER for this last week. Had an ultrasound performed which showed gestational age of 5 weeks, intrauterine, but unable to visualize pole or yolk sac. Patient reports she has attempted to follow-up with her OBGYN, [facility], but has been unable to make an appointment. Today around 4:00 p.m., patient had an episode of significant bleeding. States it was bright red. States she began having lower abdominal cramping, nausea, lightheadedness. She then prompted here for further evaluation. Related Data Home Medications Medication Instructions Recorded Confirmed Classic 1 tab-cap PO DAILY 07/06/23 07/06/23 Allergies Allergy/AdvReac Type Severity Reaction Status Date / Time latex Allergy Itching Verified 02/28/24 13:57 Review of Systems Review of Systems: All systems reviewed & are unremarkable except as noted in HPI. All systems reviewed & are unremarkable except as noted in HPI and below PMFSH Family History Family History Father Congestive heart failure Social History Social History Smoking status: Never smoker Substance use: never Do You Feel Safe in your Home?: Yes Lack of Transportation: No Lack of Food: Never True Current Housing: I Have Housing Concerned About Future Housing: No Difficulty Paying Gas/Electric Bills: No Difficulty Paying for Meds: No Currently Unemployed: No Education: Associate Degree Difficulty w/ Childcare or Family Care: No Spiritual care concerns: No Exam Narrative: GENERAL: Well appearing, BMI 30.0, non-toxic, in no acute distress. HEAD: Normocephalic, atraumatic. RESPIRATORY: Airway patent, respirations nonlabored. Clear to auscultation bilaterally, no rales, rhonchi, wheezing. CARDIOVASCULAR: Regular rate and rhythm ABDOMINAL: Soft, mild diffuse tenderness, nondistended. Normoactive BS. PELVIC: Normal external genitalia. Small amount of dark red blood in vaginal vault. No significant clots. No evidence of hemorrhage or pooling of fluid. No significant CMT. MUSCULOSKELETAL: Moves all extremities. No gross deformities. SKIN: Warm, dry, normal color. NEURO: A&O X3. Speech clear. PSYCHIATRIC: Appropriate mood and affect. Normal interaction. Course Vital Signs Vital signs: Vital Signs Temperature 98.5 F 03/05/24 16:54 Pulse Rate 72 03/05/24 16:54 Respiratory Rate 16 03/05/24 16:54 Blood Pressure 104/81 03/05/24 16:54 Pulse Oximetry 100 03/05/24 16:54 Temperature 98.5 F 03/05/24 16:54 Pulse Rate 67 03/05/24 20:14 Respiratory Rate 16 03/05/24 20:14 Blood Pressure 108/54 L 03/05/24 20:14 Pulse Oximetry 100 03/05/24 20:14 MDM - OB/Uterine Contractions MDM Narrative Medical decision making narrative: Patient presented to ED with vaginal bleeding, currently approx 6 weeks gestation. Seen in the ED last week for similar. US at that time showed early . Patient now with worsening bleeding. VSS. Patient is in no acute distress. Cbc is unremarkable. Hemoglobin is stable compared to last week. Beta hCG today is nearly 30,000, up trending from just under 5000 last week. Will obtain repeat ultrasound to determine viability of cu
[2024-03-05 19:00] VITALS: BP 104/66; PULSE 71; RESP 16; O2SAT 100
[2024-03-05 20:14] VITALS: BP 108/54; PULSE 67; RESP 16; O2SAT 100
== END 2024-03-05 20:16 | disposition home or self-care (01) ==
PROVIDERS: Emergency Provider Physician Assistant
DX: O20.0 Threatened abortion (principal); Z3A.01 Less than 8 weeks gestation of pregnancy
CPT/HCPCS: 36415; 76801; 76817; 80048; 81001; 84702; 85025; 96361; 96374; 99284; A9270; J2405; J7030

== ENCOUNTER 2024-03-07 11:33 | Outpatient (CLI) | payer OTHER, SELFPAY | END 2024-03-07 11:34 | disposition home or self-care (01) | LOC: ANHLAB 11:35 | PROVIDERS: Visit Provider Physician Assistant | DX: O20.0 Threatened abortion (principal); Z3A.00 Weeks of gestation of pregnancy not specified | CPT/HCPCS: 36415; 84702 ==